=== PATIENT | male | born 1965 | race Caucasian/White ===

== ENCOUNTER 2025-08-11 05:55 | Inpatient (IN) | payer MEDICAID, MEDICARE ==
[2025-08-11 06:21] LABS: BASOPHILS ABSOLUTE AUTO 0.0 K/mm3 (0.0-0.2); BASOPHILS PERCENT AUTO 0.5 % (0.0-1.0); EOSINOPHILS ABSOLUTE AUTO 0.1 K/mm3 (0.0-0.4); EOSINOPHILS PERCENT AUTO 1.0 % (0.0-6.0); IMMATURE GRAN ABSOLUTE AUTO 0.04 K/mm3 (0.00-0.05); IMMATURE GRAN PERCENT AUTO 0.5 % (0.0-0.4); LYMPHOCYTES ABSOLUTE AUTO 1.7 K/mm3 (1.0-4.8); LYMPHOCYTES PERCENT AUTO 19.4 % (24.0-44.0); MEAN PLATELET VOLUME 9.7 fl (9.4-12.4); MONOCYTES ABSOLUTE AUTO 0.4 K/mm3 (0.0-0.8); MONOCYTES PERCENT AUTO 5.0 % (0.0-8.0); NEUTROPHILS ABSOLUTE AUTO 6.5 K/mm3 (1.8-7.7); NEUTROPHILS PERCENT AUTO 73.6 % (41.0-71.0); NRBC ABSOLUTE 0.00 (0.00-0.02); NRBC PERCENT 0.0 % (0.0-0.2); PLATELET COUNT,PLT 243 K/mm3 (150-400); RED BLOOD CELL COUNT 3.62 M/mm3 (4.52-5.90); WHITE BLOOD CELL COUNT,WBC 8.80 K/mm3 (3.9-11.3)
[2025-08-11 06:42] LABS: BLOOD UREA NITROGEN,BUN 23.0 mg/dL (7-18); CARBON DIOXIDE,CO2 28.0 mEq/L (21-32); CHLORIDE,CL 107.0 mEq/L (98-107); CREATININE 1.7 mg/dL (0.7-1.3); EST CRCL DRUG DOSING (CG) 46.53 mL/min; ESTIMATED GFR 46.0 mL/min (>60); GLUCOSE RANDOM 88.0 mg/dL (70-99); POTASSIUM,K 4.1 mEq/L (3.5-5.1); SODIUM,NA 142.0 mEq/L (136-145)
[2025-08-11 07:05] LABS: ETHANOL BLOOD MEDICAL 0.0 gm% (0.00)
[2025-08-11] MEDS: 50% Dextrose in Water 50 ML Syringe IVPUSH ONE (08:00)
[2025-08-11] MEDS: Sodium Chloride 0.9% 10 ML Syringe FLUSH PRN (08:02)
[2025-08-11] MEDS ORDERED: Magnesium Hydroxide 400 MG/5 ML Susp 30 ML Cup PO PRN (08:45)
[2025-08-11] MEDS ORDERED: ESOMEPRAZOLE 40 MG PO SCH (09:00)
[2025-08-11] MEDS ORDERED: valACYclovir 1,000 MG Tab PO SCH (09:00)
[2025-08-11] MEDS ORDERED: Non-Formulary Medication 1 Each (Loratadine [Claritin] 10 MG Capsule) PO SCH (09:00)
[2025-08-11 10:22] LABS: APPEARANCE,URINE CLEAR (Clear); GLUCOSE,URINE TRACE (Negative); OCCULT BLOOD,URINE NEGATIVE (Negative)
[2025-08-11 10:29] LABS: BUPRENORPHINE SCREEN,URINE NEGATIVE (CUTOFF=10); METHADONE SCREEN, URINE NEGATIVE (CUT0FF=200); METHAMPHETAMINES SCREEN, URINE NEGATIVE (CUTOFF=500); OXYCODONE SCREEN,URINE NEGATIVE (CUT0FF=100); THC SCREEN,URINE 20 NG/ML NEGATIVE (CUTOFF=50)
[2025-08-11 10:35] LABS: AMPHETAMINES SCREEN, URINE NEGATIVE (CUTOFF=500)
[2025-08-11 10:59] LABS: SQUAMOUS EPITHELIAL CELLS,UR 0-5 /hpf (0-5)
[2025-08-11] MEDS: Insulin Lispro 100 Unit/ML 3 ML KwikPen SUBCUT ONE ×2 (12:14→14:43)
[2025-08-11] MEDS: Insulin Lispro 100 Unit/ML 3 ML KwikPen SUBCUT SCH (17:08)
[2025-08-11] MEDS: 50% Dextrose in Water 50 ML Syringe IVPUSH PRN (22:10)
[2025-08-11] MEDS: 50% Dextrose in Water 50 ML Syringe ONE (22:12)
[2025-08-12] MEDS: Insulin Lispro 100 Unit/ML 3 ML KwikPen SUBCUT SCH (06:55)
[2025-08-12] MEDS: Mometasone Furoate HFA 100mcg/Puff 13 GM Inhaler INH SCH (08:19)
[2025-08-12] MEDS ORDERED: Fluticasone NASAL Spray 16 GM Bottle NASBOTH SCH (09:00)
[2025-08-12] MEDS: Insulin Glargine,Human Rec. Analog 100 Units/ML 3 ML Pen SUBCUT SCH (09:07)
[2025-08-12] MEDS: Insulin Lispro 100 Unit/ML 3 ML KwikPen SUBCUT ONE ×2 (12:29→14:17)
[2025-08-12] MEDS: 50% Dextrose in Water 50 ML Syringe IVPUSH ONE (17:22)
[2025-08-13] MEDS ORDERED: Insulin Glargine,Human Rec. Analog 100 Units/ML 3 ML Pen SUBCUT SCH (09:00)
== END 2025-08-12 18:25 | disposition home or self-care (01) | DRG 639 ==
LOC: JD.ED 05:55 → JD.MS 08:29
PROVIDERS: ADMIT Family Medicine; ATTEND Family Medicine
DX: E11.649 Type 2 diabetes mellitus with hypoglycemia without coma (principal); R56.9 Unspecified convulsions; N18.9 Chronic kidney disease, unspecified; K21.9 Gastro-esophageal reflux disease without esophagitis; E03.9 Hypothyroidism, unspecified; E78.00 Pure hypercholesterolemia, unspecified; K59.09 Other constipation; E11.22 Type 2 diabetes mellitus with diabetic chronic kidney disease; F17.210 Nicotine dependence, cigarettes, uncomplicated; I12.9 Hypertensive chronic kidney disease with stage 1 through stage 4 chronic kidney disease, or unspecified chronic kidney disease; Z88.6 Allergy status to analgesic agent; Z88.5 Allergy status to narcotic agent; Z88.0 Allergy status to penicillin; Z91.0110 Allergy to milk products, unspecified; Z91.010 Allergy to peanuts; Z91.048 Other nonmedicinal substance allergy status; Z79.82 Long term (current) use of aspirin; Z79.899 Other long term (current) drug therapy; Z79.51 Long term (current) use of inhaled steroids; Z79.4 Long term (current) use of insulin
CPT/HCPCS: 36415; 80048; 80306; 80307; 81001; 82947; 83036; 83735; 84439; 84443; 85025; 94640; 96374; 99223; 99239; 99284; 99285-25; A9270-GY; J1650; J1815-GY